=== PATIENT | male | born 1955 | race American Indian/Alaskan Native ===

== ENCOUNTER 2019-01-19 13:54 | Outpatient (CLI) | payer MEDICARE ==
[2019-01-19 14:38] LABS: Albumin 4.2 g/dL (3.9-5); BUN/Creatinine Ratio 12; Blood Urea Nitrogen 16 mg/dL (9-20); Calcium 9.5 mg/dL (8.4-10.2); Hemolysis Index 9
== END 2019-01-19 13:55 | disposition home or self-care (01) ==
LOC: LAB 13:54
PROVIDERS: ATTEND Internal Medicine Nephrology
DX: I12.9 Hypertensive chronic kidney disease with stage 1 through stage 4 chronic kidney disease, or unspecified chronic kidney disease (principal); N18.3 Chronic kidney disease, stage 3 (moderate)
CPT/HCPCS: 36415; 80048; 82040; 84100

== ENCOUNTER 2022-03-03 11:49 | Outpatient (CLI) | payer MEDICARE ==
--- NOTE | 2022-03-03 13:23 | XRay Report ---
RIGHT HIP 2 VIEWS INDICATION: M16.11 UNILATERAL PRIMARY OSTEOARTHRITIS,R HIP M25.551. COMPARISON: None. IMPRESSION: Severe osteoarthritic changes are identified at the right hip. There is significant loss of joint space, subchondral cyst formation and articular surface sclerosis. Ring osteophytes are pre sent at the femoral head neck junction. No evidence for acute fracture or osteonecrosis. The soft ti ssues are unremarkable. Signer Name: Adan Dunaway Jr, MD Signed: 03/03/2022 1:19 PM Workstation Name: [id number]
== END 2022-03-03 11:50 | disposition home or self-care (01) ==
LOC: XRAY 11:49
PROVIDERS: ATTEND Orthopaedic Surgery
DX: M16.11 Unilateral primary osteoarthritis, right hip (principal); M25.751 Osteophyte, right hip

== ENCOUNTER 2022-05-07 11:52 | Outpatient (CLI) | payer MEDICARE ==
--- NOTE | 2022-05-07 14:47 | XRay Report ---
XR hip 2-3V RT INDICATION: M16.11 UNILATERAL PRIMARY OSTEOARTHRITIS, RIGHT HIP. COMPARISON: 03/14/2022 FINDINGS: Right hip arthroplasty remains in expected position without adverse change from prior exam. Moderate DJD in the left hip noted. Signer Name: Savgae Campbell MD Signed: 05/07/2022 2:42 PM Workstation Name: [employer]
== END 2022-05-07 11:53 | disposition home or self-care (01) ==
LOC: XRAY 11:52
PROVIDERS: ATTEND Orthopaedic Surgery
DX: M16.12 Unilateral primary osteoarthritis, left hip (principal); Z96.641 Presence of right artificial hip joint